=== PATIENT | male | born 1975 | race Caucasian/White ===

== ENCOUNTER 2018-12-17 07:02 | Emergency (ER) | payer OTHER ==
--- NOTE | 2018-12-17 07:39 | EDM.PDOC ---
ED HPI GENERAL MEDICAL PROBLEM - General Chief Complaint: Upper Extremity Injury/Pain Stated Complaint: R SHOULDER INJURY Time Seen by Provider: 12/17/18 07:26 Source of Information: Reports: Patient, RN Notes Reviewed - History of Present Illness INITIAL COMMENTS - FREE TEXT/NARRATIVE: Working on oil rig, injured R shoulder about 2 hr ago, gathering pipe into position, reaching, moving pipe, felt sudden onset of pain R anterior, superior shoulder. Severe pain since injury with any type of motion of R arm, feels OK as long as he holds his arm still. No fall or blow to shoulder. Right Shoulder Pain Score (Numeric/FACES): 6 - Related Data Allergies Allergy/AdvReac Type Severity Reaction Status Date / Time No Known Allergies Allergy Verified 12/17/18 07:15 Home Meds: Home Meds . [No Known Home Meds] 12/17/18 [History] Past Medical History - Past Health History Medical/Surgical History: Denies Medical/Surgical History Social & Family History - Tobacco Use Smoking Status *Q: Never Smoker - Caffeine Use Caffeine Use: Reports: Coffee - Recreational Drug Use Recreational Drug Use: No Review of Systems - Review of Systems Review Of Systems: See Below Constitutional: Reports: No Symptoms Eyes: Reports: No Symptoms Mouth/Throat: Reports: No Symptoms Respiratory: Denies: Shortness of Breath Cardiovascular: Denies: Chest Pain GI/Abdominal: Denies: Abdominal Pain, Nausea, Vomiting Musculoskeletal: Reports: Shoulder Pain Neurological: Reports: No Symptoms. Denies: Numbness, Tingling ED EXAM, GENERAL - Physical Exam Exam: See Below General Appearance: Alert, No Apparent Distress Head: Atraumatic Neck: Supple Respiratory/Chest: No Respiratory Distress Extremities: Other (there is tenderness of the anterior and severe R shoulder, severe pain with any type of motion of shoulder, Arm nontender). No: Joint Swelling (no visible deformity) Neurological: Alert, Oriented, No Motor/Sensory Deficits Skin Exam: Warm, Dry, Normal Color Course - Vital Signs Last Recorded V/S: Last Vital Signs Temp 97.6 F 12/17/18 07:13 Pulse 77 12/17/18 07:13 Resp 18 12/17/18 07:13 BP 149/94 H 12/17/18 07:13 Pulse Ox 98 12/17/18 07:13 - Re-Assessments/Exams Free Text/Narrative Re-Assessment/Exam: 12/17/18 08:09 X rays no fx. Departure - Departure Time of Disposition: 08:32 Disposition: Home, Self-Care 01 Condition: Fair Clinical Impression: Sprain of shoulder, right Qualifiers: Encounter type: initial encounter Shoulder sprain type: unspecified sprain Qualified Code(s): S43.401A - Unspecified sprain of right shoulder joint, initial encounter - Discharge Information Referrals: PCP,Not In Area [Primary Care Provider] - Forms: ED Department Discharge, ED Return to Work/School Form Additional Instructions: Rest arm and shoulder, continue advil or ibuprofen 600 mg, 3 tabs q 6 to 8 hr as needed for pain, you may take tylenol in between doses for extra pain relief as needed. 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 Alternate heat and ice packs R shoulder. No work recomended until you have followed up with [facility] Wednesday.
--- NOTE | 2018-12-17 08:17 | CR ---
Right shoulder: 3 views of the right shoulder were obtained. Comparison: No prior right shoulder study. Glenohumeral joint and acromioclavicular joint appears within normal limits. No fracture or other bony abnormality is seen. Impression: 1. No abnormality is appreciated on right shoulder study. Diagnostic code #1
== END 2018-12-17 08:41 | disposition home or self-care (01) ==
LOC: JD.ED 07:02
DX: S43.401A Unspecified sprain of right shoulder joint, initial encounter (principal); X50.0XXA Overexertion from strenuous movement or load, initial encounter
CPT/HCPCS: 73030-26-RT; 73030-RT; 99282; 99283-25